=== PATIENT | female | born 1985 | race Caucasian/White ===

== ENCOUNTER 2017-06-17 08:05 | Emergency (ER) | payer OTHER ==
[2017-06-17 12:16] VITALS: BP 131/74
== END 2017-06-17 12:16 | disposition home or self-care (01) ==
LOC: ED 08:05
DX: J98.01 Acute bronchospasm (principal)
CPT/HCPCS: 36600; 83880; 87804; J0696; J2930; J7613; J7644

== ENCOUNTER 2017-06-20 16:41 | Inpatient (IN) | payer OTHER ==
[~2017-06-20] VITALS: Ht 154.9 cm; Wt 96.2 kg
[2017-06-20 18:08] LABS: BASOPHIL % 0.1 % (0-2); PLATELET COUNT 131 x10^3mcL (130-400); RED CELL DISTRIBUTION WIDTH 12.8 % (11.5-14.5)
[2017-06-20 18:15] LABS: CALCIUM 8.4 mg/dL (8.5-10.1); CARBON DIOXIDE 26.8 mmol/L (21-32); CHLORIDE SERUM 104 mmol/L (98-107); CREATININE SERUM 0.6 mg/dL (0.6-1.0); GFR1 > 60 mL/min; GLUCOSE SERUM 109 mg/dL (74-106); POTASSIUM SERUM 4.2 mmol/L (3.5-5.1); SODIUM SERUM 139 mmol/L (136-145)
[2017-06-20] MEDS ORDERED: PREDNISONE1 MG (18:17)
[2017-06-20] MEDS ORDERED: PROVENTIL0.09 MG/A1 INH (18:17)
[2017-06-20] MEDS ORDERED: ZOF4 PO (18:17)
[2017-06-20 18:20] LABS: ALKALINE PHOSPHATASE 57 U/L (46-116); ALT/SGPT 35 U/L (14-59); AST/SGOT 31 U/L (15-37); BILIRUBIN TOTAL 0.53 mg/dL (0.20-1.00); TOTAL PROTEIN, SERUM 7.6 g/dL (6.4-8.2)
[2017-06-20 18:25] LABS: ALBUMIN 3.1 g/dL (3.4-5.0)
[2017-06-20 19:16] VITALS: BP 124/76
[2017-06-20 22:06] LABS: CHOLESTEROL/HDL RATIO 3.4; MAGNESIUM 2.2 mg/dL (1.8-2.4); PHOSPHOROUS 3.2 mg/dL (2.5-4.9)
[2017-06-20 22:49] LABS: T3 TOTAL 0.91 ng/mL
[2017-06-20 23:01] LABS: FREE T4 1.44 ng/dL (0.76-1.46); FREE THYROXINE INDEX 4.2 ug/dL (1.4-4.5); T4(THYROXINE) 11.8 ug/dL (4.7-13.3)
[2017-06-21 00:10] VITALS: BP 124/76
[2017-06-21 04:04] LABS: microscopic required? NO
[2017-06-21 04:23] LABS: UA SPECIFIC GRAVITY 1.015 (1.005-1.035); urine erythrocyte NEGATIVE (NEGATIVE)
[2017-06-21 05:42] VITALS: BP 120/75
[2017-06-21 06:41] LABS: BASOPHIL % 0.3 % (0-2); CALCIUM 7.8 mg/dL (8.5-10.1); CARBON DIOXIDE 25.8 mmol/L (21-32); CHLORIDE SERUM 107 mmol/L (98-107); CREATININE SERUM 0.5 mg/dL (0.6-1.0); GFR1 > 60 mL/min; GLUCOSE SERUM 77 mg/dL (74-106); PLATELET COUNT 202 x10^3mcL (130-400); POTASSIUM SERUM 3.1 mmol/L (3.5-5.1); RED CELL DISTRIBUTION WIDTH 12.7 % (11.5-14.5); SODIUM SERUM 141 mmol/L (136-145)
[2017-06-21 11:23] VITALS: BP 114/72
[2017-06-21 14:00] VITALS: BP 110/60
[2017-06-21 19:02] VITALS: BP 128/75
[2017-06-21 21:04] VITALS: BP 123/63
[2017-06-22 05:12] VITALS: BP 120/74
[2017-06-22 06:06] LABS: BASOPHIL % 0.3 % (0-2); PLATELET COUNT 220 x10^3mcL (130-400); RED CELL DISTRIBUTION WIDTH 13.3 % (11.5-14.5)
[2017-06-22 06:36] LABS: CALCIUM 8.4 mg/dL (8.5-10.1); CARBON DIOXIDE 24.6 mmol/L (21-32); CHLORIDE SERUM 106 mmol/L (98-107); CREATININE SERUM 0.4 mg/dL (0.6-1.0); GFR1 > 60 mL/min; GLUCOSE SERUM 114 mg/dL (74-106); MAGNESIUM 2.5 mg/dL (1.8-2.4); PHOSPHOROUS 3.6 mg/dL (2.5-4.9); POTASSIUM SERUM 4.1 mmol/L (3.5-5.1); SODIUM SERUM 140 mmol/L (136-145)
[2017-06-22 10:10] VITALS: BP 130/84
[2017-06-22 13:11] VITALS: BP 135/84
[2017-06-22 17:40] VITALS: BP 141/75
[2017-06-22 21:03] VITALS: BP 108/53
[2017-06-23 04:54] VITALS: BP 115/68
[2017-06-23 06:04] LABS: CALCIUM 7.8 mg/dL (8.5-10.1); CARBON DIOXIDE 25.8 mmol/L (21-32); CHLORIDE SERUM 109 mmol/L (98-107); CREATININE SERUM 0.6 mg/dL (0.6-1.0); GFR1 > 60 mL/min; GLUCOSE SERUM 80 mg/dL (74-106); MAGNESIUM 2.2 mg/dL (1.8-2.4); PHOSPHOROUS 3.6 mg/dL (2.5-4.9); POTASSIUM SERUM 3.5 mmol/L (3.5-5.1); SODIUM SERUM 141 mmol/L (136-145)
[2017-06-23 06:31] LABS: BASOPHIL % 0.4 % (0-2); RED CELL DISTRIBUTION WIDTH 12.8 % (11.5-14.5)
[2017-06-23 06:42] LABS: PLATELET COUNT 219 x10^3mcL (130-400)
[2017-06-23 09:45] VITALS: BP 116/77
[2017-06-23] MEDS ORDERED: MEDROL DOSEPAK4 MG PO (15:55)
[2017-06-23] MEDS ORDERED: LEVAQUIN750 MG PO (15:56)
[2017-06-23] MEDS ORDERED: LAC PO (15:57)
[2017-06-23 16:15] VITALS: BP 116/77
[2017-06-23 16:28] VITALS: BP 117/78
== END 2017-06-23 20:04 | disposition home or self-care (01) | DRG 194 ==
LOC: ED 16:41 → DU 18:19 → MU 06-23 01:25
PROVIDERS: Emergency Medicine; ADMIT Family Medicine
DX: J18.9 Pneumonia, unspecified organism (principal); Z68.41 Body mass index [BMI] 40.0-44.9, adult; E44.0 Moderate protein-calorie malnutrition; J45.901 Unspecified asthma with (acute) exacerbation; E83.51 Hypocalcemia; D64.9 Anemia, unspecified; E78.5 Hyperlipidemia, unspecified; E83.41 Hypermagnesemia; E87.6 Hypokalemia; E66.01 Morbid (severe) obesity due to excess calories; R09.02 Hypoxemia; Z83.3 Family history of diabetes mellitus
CPT/HCPCS: 83880; 84439; 87107; J0696; J1956; J2920; J7030; J7613; J7620; J7626; J7644